=== PATIENT | male | born 1970 | race Hispanic/Latino ===

== ENCOUNTER 2024-02-07 19:36 | Emergency (ER) | payer OTHER ==
[2024-02-07] MEDS: LEVETIRACETAM 500 MG/5 ML SD VIAL IV SCH (20:02)
[2024-02-07 20:10] LABS: BASOPHILS # (AUTO) 0.07 K/uL (0.00-0.20); BASOPHILS % (AUTO) 0.9 % (0.0-5.0); EOSINOPHILS # (AUTO) 0.19 K/uL (0.00-0.70); EOSINOPHILS % (AUTO) 2.5 % (0.0-8.0); HEMATOCRIT 43.5 % (42-54); IMMATURE GRANULOCYTE ABSOLUTE 0.07 K/uL (0-1); LYMPHOCYTES % (AUTO) 27.1 % (21.0-51.0); MEAN CORPUSCULAR HEMOGLOBIN 31.2 pg (27.0-33.0); MEAN CORPUSCULAR VOLUME 91.8 fL (79-99); MONOCYTES # (AUTO) 0.6 K/uL (0.1-1.0); MONOCYTES % (AUTO) 7.6 % (3.0-13.0); NEUTROPHILS # (AUTO) 4.6 K/uL (1.8-7.7); PLATELET COUNT (AUTO) 181 K/uL (130-400); RED BLOOD CELL COUNT(AUTO) 4.74 MIL/uL (4.50-6.20); RED CELL DISTRIBUTION WIDTH 12.4 % (11.0-15.5); WHITE BLOOD COUNT (AUTO) 7.5 K/uL (4.8-10.8)
[2024-02-07 20:19] LABS: POTASSIUM 3.7 mmol/L (3.5-5.1)
[2024-02-07 20:21] LABS: INR <= 0.93 (0.85-1.15); PROTHROMBIN TIME 10.6 SEC (9.6-11.6)
[2024-02-07 20:23] LABS: ALBUMIN 4.1 g/dL (3.5-5.0); BILIRUBIN,TOTAL 0.4 mg/dL (0.2-1.0); PARTIAL THROMBOPLASTIN TIME 26.2 SEC (26.3-35.5); TOTAL PROTEIN, SERUM 7.6 g/dL (6.0-8.3)
[2024-02-07] MEDS: OCTYL 2-CYANOACRYLATE 1 EACH TP SCH (22:05)
[2024-02-07 22:11] VITALS: BP 135/79; PULSE 71; RESP 14; O2SAT 99
== END 2024-02-07 22:13 | disposition home or self-care (01) ==
LOC: EDH 19:36
DX: S00.01XA Abrasion of scalp, initial encounter (principal); R56.9 Unspecified convulsions; D69.6 Thrombocytopenia, unspecified; I10 Essential (primary) hypertension; E11.9 Type 2 diabetes mellitus without complications; X58.XXXA Exposure to other specified factors, initial encounter; Y93.89 Activity, other specified; Y92.89 Other specified places as the place of occurrence of the external cause; Y99.8 Other external cause status
CPT/HCPCS: 99285; 70450; 96365; 72125; 82550; 80053; 85025; 85610; 85730; 36415; 93005; J1953